=== PATIENT | male | born 1970 | race Caucasian/White ===

== ENCOUNTER 2021-07-05 10:33 | Emergency (ER) | payer OTHER ==
[~2021-07-05] VITALS: Ht 180 cm; Wt 128.0 kg
[2021-07-05] MEDS ORDERED: morphine INJ 10 MG/ML 1ML (SYR OR VIAL) ONE (11:08)
--- NOTE | 2021-07-05 11:10 | ED Abdominal Pain ---
General Stated Complaint: COUGH CHILLS DIZZINESS CONSTIPATION Source of Information: Patient Exam Limitations: No Limitations History of Present Illness Date Seen by Provider: Jul 05, 2021 Time Seen by Provider: 11:08 Initial Comments Patient is a 50-year-old male who presents ED with abdominal pain, vomiting. Symptoms started last night with abdominal cramping. Pain became worse this morning constant with intermittent sharp pain. Pain noted on the left side. Reports decreased urination and difficulty urinating. States he vomited today attempted to take Tylenol without much improvement. Patient in mild distress. History of cholecystectomy. Denies history of kidney stones. Denies chest pain, shortness of breath, cough, fever, headache, dizziness. Patient with chills and fatigue. Patient states he had a normal bowel movement yesterday. Denies of any diarrhea. Allergies and Home Medications Allergies Coded Allergies: No Known Drug Allergies (Unverified , 07/07/11) Patient Home Medication List Home Medication List Reviewed: Yes Hydrocodone/Acetaminophen (Hydrocodone-Acetamin 5-325 mg) 1 Each Tablet, 1 TAB PO Q4H PRN for PAIN-MODERATE (5-7) Prescribed by: LARA PLAZA on 07/05/21 1340 Tamsulosin HCl (Flomax) 0.4 Mg Cap, 0.4 MG PO DAILY Prescribed by: LARA PLAZA on 07/05/21 1340 [hydro] Prescribed by: LARA PLAZA on 07/05/21 1340 Review of Systems Review of Systems Constitutional: chills; No dizziness; malaise, weakness Respiratory: Denies Cough, Denies Shortness of Air, Denies SOA With Exertion Gastrointestinal: Denies Abdomen Distended; Abdominal Pain; Denies Constipated, Denies Diarrhea Genitourinary: Frequency, Flank Pain, Pain Musculoskeletal: back pain; No joint pain Skin: No change in color, No change in hair/nails All Other Systems Reviewed Negative Unless Noted: Yes Physical Exam Vital Signs Vital Signs - First Documented 07/05/21 10:49 Temp 35.4 Pulse 75 Resp 18 B/P (MAP) 128/95 (106) Pulse Ox 97 Capillary Refill : Height/Weight/BMI Height: '" Weight: lbs. oz. 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, no motor/sensory deficits, alert, normal mood/affect, oriented x 3 Progress/Results/Core Measures Results/Orders Lab Results Laboratory Tests Test 07/05/21 11:05 07/05/21 12:56 07/05/21 13:39 Range/Units Sodium Level 136 135-145 MMOL/L Potassium Level 4.5 3.6-5.0 MMOL/L Chloride Level 105 98-107 MMOL/L Carbon Dioxide Level 18 L 21-32 MMOL/L Anion Gap 13 5-14 MMOL/L Blood Urea Nitrogen 9 7-18 MG/DL Creatinine 0.98 0.60-1.30 MG/DL Estimat Glomerular Filtration Rate 81 BUN/Creatinine Ratio 9 Glucose Level 112 H 70-105 MG/DL Calcium Level 9.7 8.5-10.1 MG/DL Corrected Calcium 9.4 8.5-10.1 MG/DL Total Bilirubin 1.0 0.1-1.0 MG/DL Aspartate Amino Transf (AST/SGOT) 65 H 5-34 U/L Alanine Aminotransferase (ALT/SGPT) 98 H 0-55 U/L Alkaline Phosphatase 76 40-136 U/L Total Protein 7.8 6.4-8.2 GM/DL Albumin 4.4 3.2-4.5 GM/DL Lipase 28 8-78 U/L Urine Color YELLOW Urine Clarity CLEAR Urine pH 8.0 5-9 Urine Specific [place] 1.020 1.016-1.022 Urine Protein NEGATIVE NEGATIVE Urine Glucose (UA) NEGATIVE NEGATIVE Urine Ketones NEGATIVE NEGATIVE Urine Nitrite NEGATIVE NEGATIVE Urine Bilirubin NEGATIVE NEGATIVE Urine Urobilinogen 0.2 < = 1.0 MG/DL Urine Leukocyte Esterase NEGATIVE NEGATIVE Urine RBC (Auto) NEGATIVE NEGATIVE Urine RBC NONE /HPF Urine WBC RARE /HPF Urine Crystals NONE /LPF Urine Bacteria NEGATIVE /HPF Urine Casts NONE /LPF Urine Mucus NEGATIVE /LPF Urine Culture Indicated NO White Blood Count 15.8 H 4.3-11.0 10^3/uL Red Blood Count 5.41 4.30-5.52 10^6/uL Hemoglobin 16.4 13.3-17.7 g/dL Hematocrit 48 40-54 % Mean Corpuscular Volume 88 80-99 fL Mean Corpuscular Hemoglobin 30 25-34 pg Mean Corpuscular Hemoglobin Concent 34 32-36 g/dL Red Cell Distribution Width 12.3 10.0-14.5 % Platelet Count 251 130-400 10^3/uL Mean Platelet Volume 9.3 9.0-12.2 fL Immature Granulocyte % (Auto) 0 % Neutrophils (%) (Auto) 87 H 42-75 % Lymphocytes (%) (Auto) 8 L 12-44 % Monocytes (%) (Auto) 5 0-12 % Eosinophils (%) (Auto) 0 0-10 % Basophils (%) (Auto) 0 0-10 % Neutrophils # (Auto) 13.7 H 1.8-7.8 10^3/uL Lymphocytes # (Auto) 1.2 1.0-4.0 10^3/uL Monocytes # (Auto) 0.7 0.0-1.0 10^3/uL Eosinophils # (Auto) 0.0 0.0-0.3 10^3/uL Basophils # (Auto) 0.1 0.0-0.1 10^3/uL Immature Granulocyte # (Auto) 0.1 0.0-0.1 10^3/uL Neutrophils % (Manual) 90 % Lymphocytes % (Manual) 6 % Monocytes % (Manual) 3 % Eosinophils % (Manual) 0 % Basophils % (Manual) 0 % Band Neutrophils 1 % Blood Morphology Comment NORMAL My Orders Orders - RAMBO DOCKERY Cbc With Automated Diff (07/05/21 11:05) Comprehensive Metabolic Panel (07/05/21 11:05) Lipase (07/05/21 11:05) Ua Culture If Indicated (07/05/21 11:05) Ns Iv 1000 Ml (Sodium Chloride 0.9%) (07/05/21 11:15) Morphine Injection (Morphine Injection (07/05/21 11:15) Ondansetron Injection (Zofran Injectio (07/05/21 11:15) Morphine Injection (Morphine Injection (07/05/21 11:08) Ct Abdomen/Pelvis Wo (07/05/21 11:25) Fentanyl Inj (Sublimaze Injection) (07/05/21 11:50) Fentanyl Inj (Sublimaze Injection) (07/05/21 13:41) Manual Differential (07/05/21 13:39) Medications Given in ED Current Medications Medications Dose Ordered Sig/Miguel Route Start Time Stop Time Status Last Admin Dose Admin Morphine Sulfate 4 mg ONCE ONCE IVP 07/05/21 11:15 07/05/21 11:16 DC 07/05/21 11:13 4 MG Ondansetron HCl 4 mg ONCE ONCE IVP 07/05/21 11:15 07/05/21 11:16 DC 07/05/21 11:13 4 MG Vital Signs/I&O 07/05/21 07/05/21 10:49 13:58 Temp 35.4 35.4 Pulse 75 75 Resp 18 18 B/P (MAP) 128/95 (106) 118/88 Pulse Ox 97 97 Departure Communication (Admissions) Patient is a 50-year-old male who presents ED with left-sided abdominal pain and left flank pain. Nausea with vomiting. Mild distress on arrival. Patient Was given IV pain medication with resolution of pain. Urinalysis negative for infection or blood. Slight elevated white blood count. Normal kidney function. CT abdomen pelvis shows a left 2 mm distal ureter obstructing stone. 3 mm left nephrolithiasis. Patient pain-free at this time. Patient feeling much better at this time. Patient will be discharged at this time with outpatient urology follow-up. Patient be discharged with pain medication, Flomax. If worsening pain strongly recommend return back to ED for further evaluation. Patient agrees with plan of action. Impression Primary Impression: Ureterolithiasis Disposition: 01 HOME, SELF-CARE Condition: Stable Departure-Patient Inst. Decision time for Depature: 13:29 Referrals: NO,LOCAL PHYSICIAN (PCP) Primary Care Physician BOO BOBO MD Patient Instructions: Kidney Stones in Adults Scripts Hydrocodone/Acetaminophen (Hydrocodone-Acetamin 5-325 mg) 1 Each Tablet 1 TAB PO Q4H PRN for PAIN-MODERATE (5-7) for 7 Days, #14 TAB Prov: RAMBO DOCKERY 07/05/21 [hydro] No Conflict Check Prov: RAMBO DOCKERY 07/05/21 Tamsulosin HCl (Flomax) 0.4 Mg Cap 0.4 MG PO DAILY for 20 Days, #20 CAP Prov: RAMBO DOCKERY 07/05/21 Work/School Note: Family Work Note Patient Received Medical Care In the Emergency Department On: Jul 05, 2021 Patient Will Be Able to Return to Work/School On: Jul 08, 2021 RAMBO DOCKERY Jul 05, 2021 11:10
[2021-07-05] MEDS ORDERED: morphine INJ 10 MG/ML 1ML (SYR OR VIAL) IVP ONE (11:15)
[2021-07-05] MEDS ORDERED: ONDANSETRON 4 MG/2 ML (SDV) Z0FRAN IVP ONE (11:15)
[2021-07-05] MEDS ORDERED: NS IV 1000 ML 1,000 ML IV SCH (11:15)
[2021-07-05 11:27] LABS: ALBUMIN 4.4 GM/DL (3.2-4.5); POTASSIUM 4.5 MMOL/L (3.6-5.0)
[2021-07-05 11:28] LABS: CALCIUM 9.7 MG/DL (8.5-10.1)
[2021-07-05 11:30] LABS: TOTAL PROTEIN 7.8 GM/DL (6.4-8.2)
[2021-07-05 11:33] LABS: CREATININE SERUM 0.98 MG/DL (0.60-1.30)
[2021-07-05] MEDS ORDERED: fentaNYL INJ 100 MCG/2 ML AMP IVP STA ×2 (11:50→13:41)
--- NOTE | 2021-07-05 12:56 | Diagnostic Imaging Report ---
PROCEDURE: CT abdomen and pelvis without contrast. TECHNIQUE: Multiple contiguous axial images were obtained through the abdomen and pelvis without the use of intravenous contrast. Auto Exposure Controls were utilized during the CT exam to meet ALARA standards for radiation dose reduction. INDICATION: Left abdominal pain, left flank pain. Nausea and vomiting. COMPARISON: None. FINDINGS: The lung bases are clear. The heart is normal in size. The liver demonstrates fatty infiltration. Cholecystectomy clips are noted. The spleen appears normal. The pancreas is normal. The adrenal glands are normal. The right kidney demonstrates no hydronephrosis or obstructing calculus. There is mild left hydroureteronephrosis with mild periureteral and perirenal fat stranding. There is an obstructing calculus in the distal left ureter about 1 cm from the ureterovesicular junction, which measures 2 mm in size. There is a nonobstructing 3 mm calculus in the left kidney. The bowel loops are nondistended without obstruction. The appendix is normal. Multiple helical coils are present from prior hernia repair. No free fluid or free air is seen. No acute osseous abnormality is seen. No lymphadenopathy is seen. The aorta demonstrates mild atherosclerosis but is normal in caliber. There are degenerative changes in the spine. IMPRESSION: 1. Obstructing 2 mm calculus in the distal left ureter causing mild left hydroureteronephrosis. 2. Hepatic steatosis. Dictated by: Dictated on workstation # [id number]
[2021-07-05 13:02] LABS: BILIRUBIN,URINE NEGATIVE (NEGATIVE); CLARITY,URINE CLEAR; COLOR,URINE YELLOW; GLUCOSE, URINE (UA) NEGATIVE (NEGATIVE); KETONES,URINE NEGATIVE (NEGATIVE); LEUKOCYTE ESTERASE ,URINE NEGATIVE (NEGATIVE); NITRITE,URINE NEGATIVE (NEGATIVE); PROTEIN,URINE NEGATIVE (NEGATIVE)
[2021-07-05 13:11] LABS: BACTERIA,URINE NEGATIVE /HPF; WBC,URINE RARE /HPF
[2021-07-05] MEDS ORDERED: ACHD5005 PO ×2 (13:31→13:40)
[2021-07-05] MEDS ORDERED: TMSL.4C PO ×2 (13:31→13:40)
[2021-07-05] MEDS ORDERED: hydro (13:40)
[2021-07-05 13:44] LABS: BASOPHILS # (AUTO) 0.1 10^3/uL (0.0-0.1); BASOPHILS % (AUTO) 0 % (0-10); EOSINOPHILS % (AUTO) 0 % (0-10); HEMATOCRIT 48 % (40-54); HEMOGLOBIN 16.4 g/dL (13.3-17.7); LYMPHOCYTES # (AUTO) 1.2 10^3/uL (1.0-4.0); LYMPHOCYTES % (AUTO) 8 % (12-44); MEAN CORPUSCULAR HEMOGLOBIN 30 pg (25-34); MEAN CORPUSCULAR HGB CONC 34 g/dL (32-36); MEAN CORPUSCULAR VOLUME 88 fL (80-99); MEAN PLATELET VOLUME 9.3 fL (9.0-12.2); MONOCYTES # (AUTO) 0.7 10^3/uL (0.0-1.0); MONOCYTES % (AUTO) 5 % (0-12); NEUTROPHILS # (AUTO) 13.7 10^3/uL (1.8-7.8); NEUTROPHILS % (AUTO) 87 % (42-75); PLATELET COUNT 251 10^3/uL (130-400); WHITE BLOOD COUNT 15.8 10^3/uL (4.3-11.0)
[2021-07-05 13:58] VITALS: BP 118/88
[2021-07-05 14:08] LABS: BAND NEUTROPHILS 1 %; BASOPHILS % (MANUAL) 0 %; EOSINOPHILS % (MANUAL) 0 %; LYMPHOCYTES % (MANUAL) 6 %; MONOCYTES % (MANUAL) 3 %; NEUTROPHILS % (MANUAL) 90 %; RBC MORPH NORMAL
== END 2021-07-05 13:58 | disposition home or self-care (01) ==
LOC: EDUNIT# 10:33 → ER 10:37
DX: N20.1 Calculus of ureter (principal); Z90.49 Acquired absence of other specified parts of digestive tract
CPT/HCPCS: 36415; 74176; 80053; 81000; 83690; 85007; 85027

== ENCOUNTER 2022-04-13 05:36 | Outpatient (CLI) | payer OTHER ==
[~2022-04-13] VITALS: Ht 180.3 cm; Wt 123.4 kg
[~2022-04-13 05:36] MED LIST: ACHD5005 PO; TMSL.4C PO; hydro
[2022-04-13] MEDS ORDERED: AMLO-379 PO (10:35)
[2022-04-13] MEDS ORDERED: LEVO25TA5 PO (10:35)
== END 2022-04-13 10:37 | disposition home or self-care (01) ==
LOC: PREOP 05:36
PROVIDERS: ATTEND Internal Medicine
DX: Z01.818 Encounter for other preprocedural examination (principal)

== ENCOUNTER 2022-04-22 07:28 | Day surgery (SDC) | payer OTHER ==
--- NOTE | 2022-04-04 20:11 | HISTORY AND PHYSICAL ---
DATE OF SERVICE: COLONOSCOPY HISTORY AND PHYSICAL DATE OF ADMISSION: . HISTORY OF PRESENT ILLNESS: The patient is a 51-year-old white male referred by Dr. Hollis Cancino for his first screening colonoscopy. He is deemed to be of average risk as he is not aware of any family history for colon cancer or colon polyps. He denies bright red blood per rectum, melena, diarrhea, constipation or abdominal pain. PAST MEDICAL HISTORY: Significant for hypertension for which he takes amlodipine 5 mg daily as only reported prescription medication. PAST SURGICAL HISTORY: He has had five arthroscopic knee surgeries, left shoulder surgery, carpal tunnel surgery and a past history of cholecystectomy. FAMILY HISTORY: He does not know anything about his father's family history, but does know that he is , in his 70s. Mother with complications of an UT, hypertension and was morbidly obese at the age of 62. SOCIAL HISTORY: The patient has a [id number] smoking history, but quit approximately 20 years ago. He reports occasional small volume alcohol intake. REVIEW OF SYSTEMS: CONSTITUTIONAL: Denies night sweats, chills, fever or change in weight. GASTROINTESTINAL: As noted in the HPI. PULMONARY: Denies cough, wheezing or shortness of breath. CARDIOVASCULAR: Denies chest discomfort, orthopnea, PND or pedal edema. PHYSICAL EXAMINATION: GENERAL: Reveals a pleasant white male, appears to be in no acute distress. VITAL SIGNS: Weight 272 pounds and blood pressure 130/82. HEENT: Unremarkable. Sclerae nonicteric. CHEST: Clear to auscultation. CARDIOVASCULAR: Reveals a regular rate and rhythm without murmur, S3 or S4. ABDOMEN: Soft, supple without mass, organomegaly or tenderness. EXTREMITIES: Reveal no cyanosis, clubbing or edema. ASSESSMENT AND PLAN: The patient is being set up for his first screening colonoscopy, deemed to be at average risk as noted above. Prep instructions with Plenvu were given and questions were answered. Job ID: [id number] DocumentID: [id number] Dictated Date: 03/28/2022 17:13:36 Lock Operator Date: 03/28/2022 17:31:45 Dictated By: ARELIS DELONG MD
[~2022-04-22] VITALS: Ht 180.3 cm; Wt 123.4 kg
[~2022-04-22 07:28] MED LIST changes: +AMLO-379 PO; +LEVO25TA5 PO
[2022-04-22] MEDS ORDERED: LACTATED RINGERS 1,000 ML IV STA (07:34)
[2022-04-22 07:40] VITALS: BP 133/92
[2022-04-22] MEDS ORDERED: PROPOFOL INJECTION 50 ML IV ONE (07:50)
[2022-04-22] MEDS ORDERED: MIDAZOLAM 2 MG/2 ML (VERSED) VIAL ONE (07:50)
--- NOTE | 2022-04-22 07:50 | Pre-Op Note & Conscious Sedat ---
Pre-Operative Progress Note Date H&P Reviewed: Apr 22, 2022 Time H&P Reviewed: 07:40 History & Physical: H&P Reviewed, Patient Examed, No changes noted Pre-Op Diagnosis: screening Conscious Sedation Pre-Proced ASA Score 2 For ASA 3 and 4: Consider anesthesia and medical clearance. Also, for patients with a history of failed moderate sedation consider anesthesia. Airway Lungs Heart ASA score ASA 1: a normal healthy patient ASA 2: a patient with a mild systemic disease (mid diabetes, controlled hypertension, obesity ASA 3: a patient with a severe systemic disease that limits activity (angina, COPD, prior Myocardial infarction) ASA 4: a patient with an incapacitating disease that is a constant threat to life (CHF, renal failure) ASA 5: a moribund patient not expected to survive 24 hrs. (ruptured aneurysm) ASA 6: a declared brain- patient whose organs are being harvested. For emergent operations, add the letter E after the classification Mallampati Classification Grade 1 Sedation Plan Analgesia, Amnesia, Plan communicated to team members, Discussed options with patient/fam, Discussed risks with patient/fam The patient is an appropriate candidate to undergo the planned procedure, sedation, and anesthesia. The patient immediately re-assessed prior to indication. ARELIS DELONG MD Apr 22, 2022 07:50
[2022-04-22 08:25] VITALS: BP 105/66
--- NOTE | 2022-04-22 08:29 | Progress Note-Post Operative ---
Post-Procedure Note Physician (s)/[place] (s) Physician ARELIS DELONG MD Pre-Procedure Diagnosis Pre-Procedure Diagnosis: screening Post-Procedure Diagnosis Post-operative diagnosis: polypectomy times 2 25 and 32 cm from anal canal in sigmoid other ross normal colon ARELIS DELONG MD Apr 22, 2022 08:29
[2022-04-22 08:30] VITALS: BP 103/63
[2022-04-22 08:40] VITALS: BP 107/67
[2022-04-22 09:14] VITALS: BP 107/67
--- NOTE | 2022-04-22 12:48 | Anesthesia-General Post-Op ---
MAC Patient Condition Mental Status/LOC: Same as Preop Cardiovascular: Satisfactory Nausea/Vomiting: Absent Respiratory: Satisfactory Pain: Controlled Complications: Absent Post Op Complications Complications None Follow Up Care/Instructions Patient Instructions None needed. Anesthesiology Discharge Order Discharge Order Patient is doing well, no complaints, stable vital signs, no apparent adverse anesthesia problems. No complications reported per nursing. PATRICIA MATTHEWS CRNA Apr 22, 2022 12:48
--- NOTE | 2022-04-22 13:17 | OPERATIVE REPORT ---
DATE OF SERVICE: COLONOSCOPY SUMMARY INDICATION FOR THE PROCEDURE: Screening. DESCRIPTION OF PROCEDURE: The patient was placed in the left lateral decubitus position. Prior to undergoing colonoscopy, digital rectal evaluation was performed. Prostate is small, flap and anodular. No abnormalities were noted on digital inspection of anal canal or distal rectal vault. The colonoscope was then inserted into the rectum and under direct visualization advanced to the cecum. The cecum was identified by identification of ileocecal valve and cecal strap as well as appendiceal orifice. Photographic documentation was obtained. Careful inspection was made as colonoscope withdrawn. Quality of prep was good. FINDINGS: There was no evidence for internal or external hemorrhoids and the rectum was unremarkable. Present in the mid sigmoid colon and proximal sigmoid colon at 25 and 32 cm from the anal canal, there were 2 pedunculated roughly 1.5 cm adenomatous appearing polyps. They were photographed the more proximal of the polyps, fragmented with snare resection and was retrieved in several pieces unfortunately. The more proximal polyp at 32 cm was removed in its entirety. There was minimal blood loss was noted from both sides. No diverticular disease was noted. The descending colon, splenic flexure, transverse colon, hepatic flexure and ascending colon, and cecum were unremarkable. ASSESSMENT: Two moderate size pedunculated polyps were removed as noted per above via snare. We will await histopathology report with a 1-year screening interval being recommended if there is no evidence for underlying malignancy. I thank you for the referral of this pleasant gentleman. Dr. Hollis Cancino - requested, unable to deliver. Job ID: [id number] DocumentID: [id number] Dictated Date: 04/22/2022 08:26:57 Coating Supervisor Date: 04/22/2022 13:16:29 Dictated By: ARELIS DELONG MD
== END 2022-04-22 09:14 | disposition home or self-care (01) ==
LOC: ENDO 07:28
PROVIDERS: ATTEND Internal Medicine
DX: Z12.11 Encounter for screening for malignant neoplasm of colon (principal); D12.5 Benign neoplasm of sigmoid colon; I10 Essential (primary) hypertension; Z79.899 Other long term (current) drug therapy; Z87.891 Personal history of nicotine dependence; Z28.310 Unvaccinated for COVID-19

== ENCOUNTER 2023-05-03 05:49 | Outpatient (CLI) | payer OTHER ==
[~2023-05-03] VITALS: Ht 180.3 cm; Wt 130.0 kg
[2023-05-08] MEDS ORDERED: AMLO-251 PO ×2 (10:39)
== END 2023-05-08 10:44 | disposition home or self-care (01) ==
LOC: PREOP 05:49
PROVIDERS: ATTEND Internal Medicine
DX: Z01.818 Encounter for other preprocedural examination (principal)

== ENCOUNTER 2023-05-12 07:26 | Day surgery (SDC) | payer OTHER ==
--- NOTE | 2023-05-03 01:11 | HISTORY AND PHYSICAL ---
COLONOSCOPY HISTORY AND PHYSICAL HISTORY OF PRESENT ILLNESS: The patient is a 52-year-old white male referred by Dr. Cancino for surveillance colonoscopy. He had 2 moderate-sized pedunculated polyps removed on colonoscopy a year ago, present in the mid sigmoid and proximal sigmoid colon, 25 and 32 cm from the anal canal. Both were adenomas without dysplasia. He reports no problems with colonoscopy with the prep or the procedure and has had no rectal bleeding or abdominal symptoms, and there has been no change in his health history. He is not aware of any family history for colon cancer. PAST SURGICAL HISTORY: He has had a number of arthroscopic knee surgeries. He has had left shoulder surgery, carpal tunnel surgery and a cholecystectomy in the past. PAST MEDICAL HISTORY: Significant for hypertension. His amlodipine was increased to 10 mg and he feels that his blood pressures have been under better control since that time. PHYSICAL EXAMINATION: GENERAL: Reveals a white male, who appeared to be in no acute distress. VITAL SIGNS: Blood pressure 120/86, weight 286 pounds. HEENT: Unremarkable. Sclerae are nonicteric. CHEST: Clear to auscultation. CARDIOVASCULAR: Reveals regular rate and rhythm without murmur, S3, or S4. ABDOMEN: Soft, supple without mass, organomegaly, or tenderness. EXTREMITIES: Revealed no cyanosis, clubbing or edema. ASSESSMENT AND PLAN: The patient is being set up for surveillance colonoscopy due to past history of colon polyps. See HPI. Prep instructions were given and questions were answered. The patient is to avoid aspirin and nonsteroidal medication over the next week. I thank you for the referral of this pleasant gentleman. Job ID: [id number] DocumentID: [id number] Dictated Date: 05/01/2023 17:24:27 Hatchery Laborer Date: 05/01/2023 17:42:00 Dictated By: ARELIS DELONG MD
[~2023-05-12] VITALS: Ht 180.3 cm; Wt 130.0 kg
[~2023-05-12 07:26] MED LIST changes: +AMLO-251 PO
[2023-05-12] MEDS ORDERED: MIDAZOLAM INJ 2 MG/2 ML VIAL ONE (07:35)
[2023-05-12] MEDS ORDERED: LACTATED RINGERS 1,000 ML 1,000 ML IV STA (07:41)
[2023-05-12 07:47] VITALS: BP 133/84
--- NOTE | 2023-05-12 07:51 | Pre-Op Note & Conscious Sedat ---
Pre-Operative Progress Note Date H&P Reviewed: May 12, 2023 Time H&P Reviewed: 07:50 History & Physical: H&P Reviewed, Patient Examed, No changes noted Pre-Op Diagnosis: Hx of colon polyps Moderate Sedation PreProcedure ASA Score 2 Airway Lungs Heart ASA score ASA 1: a normal healthy patient ASA 2: a patient with a mild systemic disease (mid diabetes, controlled hypertension, obesity ASA 3: a patient with a severe systemic disease that limits activity (angina, COPD, prior Myocardial infarction) ASA 4: a patient with an incapacitating disease that is a constant threat to life (CHF, renal failure) ASA 5: a moribund patient not expected to survive 24 hrs. (ruptured aneurysm) ASA 6: a declared brain- patient whose organs are being harvested. For emergent operations, add the letter E after the classification Mallampati Classification Grade 2 Sedation Plan Analgesia, Amnesia, Plan communicated to team members, Discussed options with patient/fam, Discussed risks with patient/fam The patient is an appropriate candidate to undergo the planned procedure, sedation, and anesthesia. The patient immediately re-assessed prior to indication. ARELIS DELONG MD May 12, 2023 07:51
[2023-05-12 08:53] VITALS: BP 118/57
[2023-05-12 09:00] VITALS: BP 118/57
[2023-05-12 09:30] VITALS: BP 121/83
[2023-05-12 09:38] VITALS: BP 121/83
--- NOTE | 2023-05-12 11:37 | Anesthesia-General Post-Op ---
MAC Patient Condition Mental Status/LOC: Same as Preop Cardiovascular: Satisfactory Nausea/Vomiting: Absent Respiratory: Satisfactory Pain: Controlled Complications: Absent Post Op Complications Complications None Follow Up Care/Instructions Patient Instructions None needed. Anesthesiology Discharge Order Discharge Order Patient was doing well this morning after the procedure with no complaints, stable vital signs, no apparent adverse anesthesia problems. No complications reported per nursing. JULIA PARKER DO May 12, 2023 11:37
--- NOTE | 2023-05-17 10:49 | Progress Note-Post Operative ---
Post-Procedure Note Physician (s)/Logistics Account Manager (s) Physician ARELIS DELONG MD Pre-Procedure Diagnosis Pre-Procedure Diagnosis: Hx of colon polyps Post-Procedure Diagnosis Post-operative diagnosis: Prior to undergoing colonoscopy digital rectal evaluation was performed. Anal sphincter tone was normal and the perianal reflexes intact. No abnormalities noted on digital specks in anal canal or distal rectal vault. Prostate is mildly enlarged and a nodular on digital inspection. No abnormalities are noted on digital inspection anal canal or distal rectal vault. The colonoscope was then inserted into the rectum and under direct visualization advanced to the cecum. The cecum was identified by the indication of the ileocecal valve and cecal strap. Photographic documentation was obtained. Careful inspection was made as the colonoscope was withdrawn. Quality the prep was good. Findings. There are no evidence for internal or external hemorrhoids and the rectum sigmoid colon descending colon and splenic flexure were unremarkable. A 4 mm sessile polyp was noted in the distal transverse colon it was biopsied and ablated with hot forceps with no blood loss. The remainder the transverse colon and [place] flexure ascending colon and cecum were unremarkable. A/P 1. One 4 mm polyp was removed via hot forceps from the distal transverse colon with an otherwise unremarkable colonoscopy to the cecum under good prep conditions. Would advocate consideration for repeat surveillance colonoscopy in 3 years ARELIS DELONG MD May 17, 2023 10:49
== END 2023-05-12 09:38 | disposition home or self-care (01) ==
LOC: ENDO 07:26
PROVIDERS: ATTEND Internal Medicine
DX: Z86.010 Personal history of colon polyps (principal); D12.3 Benign neoplasm of transverse colon; Z87.891 Personal history of nicotine dependence